=== PATIENT | female | born 1940 | race Caucasian/White ===

== ENCOUNTER 2017-05-30 08:08 | Inpatient (IN) | payer MEDICARE ==
[2017-05-30] MEDS ORDERED: Morphine 4 MG/ML VIAL ONE ×3 (08:27→12:26)
--- NOTE | 2017-05-30 08:33 | C.PDOC ---
Time Seen by Provider: 05/30/17 08:21 Chief Complaint (Nursing): Lower Extremity Problem/Injury Past Medical History Vital Signs: Last Vital Signs Temp 98.4 F 05/30/17 08:12 Pulse 79 05/30/17 08:12 Resp 20 05/30/17 08:12 BP 145/70 05/30/17 08:12 Pulse Ox 96 05/30/17 08:12 - Medical History PMH: Diabetes, HTN, Hypercholesterolemia, Hyperlipidemia Surgical History: Pacemaker (1.5 Month Ago) - [facility] Procedures INITIAL INSERT TRANS LEADS INTO [employer] (08/24/13) INITIAL INSERTION OF DUAL-CHAMBER DEVICE (08/24/13) - Social History Hx Tobacco Use: No Hx Alcohol Use: No Hx Substance Use: No - Immunization History Hx Tetanus Toxoid Vaccination: Yes Hx Influenza Vaccination: Yes (07/2016) Hx Pneumococcal Vaccination: Yes (07/2016) ED Course And Treatment O2 Sat by Pulse Oximetry: 96 Disposition - Disposition Forms: [employer] (Mal[place]ian)
[2017-05-30 08:49] LABS: BASO # 0.1 K/uL (0.0-0.2); BASO % 0.4 % (0.0-2.0); EOS % 0.1 % (0.0-4.0); HEMOGLOBIN 11.3 g/dL (11.0-16.0); LYMPH # 0.6 K/uL (1.0-4.3); LYMPH % 4.5 % (20.0-40.0); MEAN CELL VOLUME 85.5 fL (81.0-99.0); MEAN CORPUSCULAR HEMOGLOBIN 28.2 pg (27.0-31.0); MEAN PLATELET VOLUME 6.9 fL (7.2-11.7); MONO # 0.5 K/uL (0.0-0.8); MONO % 3.4 % (0.0-10.0); NEUT # 12.8 K/uL (1.8-7.0); NEUT % 91.6 % (50.0-75.0); PLATELET COUNT 222 K/uL (130-400); RED CELL DISTRIBUTION WIDTH 14.7 % (11.5-14.5)
[2017-05-30 08:57] LABS: INR 1.3; PROTHROMBIN TIME 14.8 SECONDS (9.7-12.2)
[2017-05-30 08:59] LABS: SQUAMOUS EPITHIAL < 1 /hpf (0-5); URINE BILIRUBIN NEGATIVE (NEGATIVE); URINE BLOOD 2+ (NEGATIVE); URINE CLARITY Clear (Clear); URINE COLOR Yellow (YELLOW); URINE GLUCOSE (UA) NORMAL (Normal); URINE LEUKOCYTE ESTERASE NEG Leu/uL (Negative); URINE NITRATE NEGATIVE (NEGATIVE); URINE PROTEIN NEGATIVE (NEGATIVE); URINE UROBILINOGEN NORMAL mg/dL (0.2-1.0)
[2017-05-30 09:07] LABS: ALBUMIN 4.1 g/dL (3.5-5.0)
[2017-05-30 09:10] LABS: ALB/GLOB RATIO 1.2 (1.0-2.1); ALT/SGPT 27 U/L (9-52); AST/SGOT 28 U/L (14-36); BLOOD UREA NITROGEN 29 mg/dL (7-17); GFR AFRICAN-AMERICAN > 60; GFR NON-AFRICAN AMERICAN 54
[2017-05-30 09:11] LABS: CALCIUM 9.2 mg/dl (8.6-10.4)
[2017-05-30 09:53] LABS: ANISOCYTOSIS SLIGHT; BANDS 2 % (0-2); EOSINOPHIL 1 % (0-4); LYMPHOCYTE 7 % (20-40); MONOCYTE 4 % (0-10); NEUTROPHIL 86 % (50-75); PLATELET ESTIMATE NORMAL (NORMAL); TOTAL CELLS COUNTED 100
--- NOTE | 2017-05-30 10:30 | CT ---
CT right hip History: Hip fracture. Comparison: None available. Technique: Multiple contiguous axial images were performed through the right hip without the use of intravenous contrast. Subsequently, sagittal coronal reformatted images were obtained. This CT exam was performed using one or more of the following dose reduction techniques: Automated exposure control, adjustment of the mA and/or kV according to patient size, and/or use of iterative reconstruction technique. Findings: Right hip: Complete transverse oblique fracture deformity through the right proximal femur extending from the lateral aspect of the femoral head neck junction transversely through the femoral neck to the inferomedial femoral neck. Angulation and superior distraction of the distal fracture fragment. Femoral head appears located. Severe degenerative changes at the superior aspect of the right femoral head with adjacent bony hypertrophy of the bony glenoid. Evaluation of the remainder of the bony pelvis demonstrates some questionable minimal cortical irregularity at the posterior right superior pubic bone on series 300 image 37 which may represent some step-off artifact as it is not as well appreciated on the additional sequences. Prominent osteitis pubis. Sclerosis at the right SI joint. Prominent degenerative changes at the L5-S1 disc space with paravertebral osteophytosis as well as posterior disc osteophyte complexes. Severe fecal retention in the rectum. Impression: 1. Complete transverse oblique fracture deformity through the right proximal femur extending from the lateral aspect of the femoral head neck junction transversely through the femoral neck to the inferomedial femoral neck. Angulation and superior distraction of the distal fracture fragment. 2. Severe degenerative changes at the superior aspect of the right femoral head with adjacent bony hypertrophy of the bony glenoid. 3. Evaluation of the remainder of the bony pelvis demonstrates some questionable minimal cortical irregularity at the posterior right superior pubic bone on series 300 image 37 which may represent some step-off artifact as it is not as well appreciated on the additional sequences. 4. Prominent osteitis pubis. Sclerosis at the right SI joint. 5. Prominent degenerative changes at the L5-S1 disc space with paravertebral osteophytosis as well as posterior disc osteophyte complexes. 6. Severe fecal retention in the rectum.
--- NOTE | 2017-05-30 10:41 | RAD ---
PROCEDURE: CHEST RADIOGRAPH, 1 VIEW HISTORY: fall COMPARISON: 11/02/2013 FINDINGS: LUNGS: Chronic interstitial lung markings. Left-sided pacemaker. PLEURA: No pneumothorax or pleural fluid seen. CARDIOVASCULAR: Normal. OSSEOUS STRUCTURES: Degenerative changes in the spine and shoulders. VISUALIZED UPPER ABDOMEN: Normal. OTHER FINDINGS: None. IMPRESSION: No active disease.
--- NOTE | 2017-05-30 10:53 | C.PDOC ---
History Of Present Illness 76 y/o female presents to the ED via ambulance for evaluation of right hip pain this morning. Patient sustained a fall at home and has been having pain in her right hip since the incident. Additionally, patient was found covered in her own feces. She denies LOC, head injury, extremity numbness/weakness. Time Seen by Provider: 05/30/17 08:21 Chief Complaint (Nursing): Lower Extremity Problem/Injury History Per: Patient, EMS History/Exam Limitations: no limitations Onset/Duration Of Symptoms: Hrs Current Symptoms Are (Timing): Still Present Additional History Per: Patient, EMS - Hip Description Of Injury: Fell Past Medical History Reviewed: Historical Data, Nursing Documentation, Vital Signs Vital Signs: Last Vital Signs Temp 99.4 F 05/30/17 15:26 Pulse 89 05/30/17 15:26 Resp 20 05/30/17 15:26 BP 142/65 05/30/17 15:26 Pulse Ox 100 05/30/17 17:01 - Medical History PMH: Diabetes, HTN, Hypercholesterolemia, Hyperlipidemia Surgical History: Pacemaker (1.5 Month Ago) - [facility] Procedures INITIAL INSERT TRANS LEADS INTO [employer]LE (08/24/13) INITIAL INSERTION OF DUAL-CHAMBER DEVICE (08/24/13) Family History: States: Unknown Family Hx - Social History Hx Tobacco Use: No Hx Alcohol Use: No Hx Substance Use: No - Immunization History Hx Tetanus Toxoid Vaccination: Yes Hx Influenza Vaccination: Yes (07/2016) Hx Pneumococcal Vaccination: Yes (07/2016) Review Of Systems Musculoskeletal: Positive for: Other (+right hip pain ) Neurological: Negative for: Weakness, Numbness, Other (head injury/LOC ) Physical Exam - Physical Exam Appears: Non-toxic, Other (+moderate painful distress, covered in stool ) Skin: Normal Color, Warm, Dry Head: Atraumatic, Normacephalic, No Tenderness, No Swelling Eye(s): bilateral: Normal Inspection, PERRL, EOMI Oral Mucosa: Moist Neck: Supple Chest: Symmetrical, No Deformity, No Tenderness, Other (+pacemaker in place ) Cardiovascular: Rhythm Regular, No Murmur Respiratory: Normal Breath Sounds, No Rales, No Rhonchi, No Wheezing Extremity: Normal ROM, Tenderness (right hip area on palpation ), Capillary Refill (less than 2 seconds ), Other (+externally rotated right lower extremity ) Neurological/Psych: Normal Speech, Normal Cognition Gait: Steady ED Course And Treatment - Laboratory Results Result Diagrams: 05/30/17 08:44 05/30/17 08:44 ECG Rhythm: Sinus Rhythm Interpretation Of ECG: Sinus Rhytm of rate 74bpm. LVH. Diffuse abnormalities noted. Rate From EC O2 Sat by Pulse Oximetry: 100 (on RA) Pulse Ox Interpretation: Normal - Other Rad CXR X-Ray: Interpreted by Me, Viewed By Me, Read By Radiologist Interpretation: Accession No. : [id number]. Patient Name / ID : SRIRAM MUNGUIA / [id number]. Exam Date : 05/30/2017 08:49:02 ( Approved ). Study Comment : Sex / Age : F / 76Y. Creator : Andrei Benson MD. Dictator : Andrei Benson MD. Fabric Coating Supervisor : Phlebotomy Technologist : Andrei Benson MD. Approver2 : Report Date : 05/30/2017 10:40:12. My Comment : . PROCEDURE: CHEST RADIOGRAPH, 1 VIEW. HISTORY: fall. COMPARISON: 11/02/2013. FINDINGS: LUNGS : Chronic interstitial lung markings. Left-sided pacemaker. PLEURA: No pneumothorax or pleural fluid seen. CARDIOVASCULAR: Normal. OSSEOUS STRUCTURES: Degenerative changes in the spine and shoulders. VISUALIZED UPPER ABDOMEN: Normal. OTHER FINDINGS: None. IMPRESSION: No active disease. Hip/Pelvis XR X-Ray: Interpreted by Me, Viewed By Me, Read By Radiologist Interpretation: Accession No. : [id number]. Patient Name / ID : SRIRAM MUNGUIA / [id number]. Exam Date : 05/30/2017 08:49:09 ( Approved ). Study Comment : Sex / Age : F / 76Y. Creator : Andrei eBnson MD. Dictator : Andrei Benson MD. Fabric Coating Supervisor : Phlebotomy Technologist : Andrei Benson MD. Approver2 : Report Date : 05/30/2017 11:18:03. My Comment : . Pelvis and right hip two views. History: Fall. Findings: Foreshortening of the proximal right femur concerning for fracture deformity. Prominent degenerative changes at the right hip joint space. Sclerosis at the bilateral SI joints and pubic symphysis. Moderate degenerative changes at the left hip joint space with subchondral sclerosis. Fecal retention in the rectum. Vascular calcifications and calcified phleboliths in the pelvis. Impression: Foreshortening of the proximal right femur concerning for fracture deformity. Correlation with MRI may be helpful if clinically indicated. - CT Scan/US CT Right lower extremity Other Rad Studies (CT/US): Interpreted By Me, Read By Radiologist, Radiology Report Reviewed CT/US Interpretation: CT right hip. History: Hip fracture. Comparison: None available. Technique: Multiple contiguous axial images were performed through the right hip without the use of intravenous contrast. Subsequently, sagittal coronal reformatted images were obtained. This CT exam was performed using one or more of the following dose reduction techniques: Automated exposure control, adjustment of the mA and/or kV according to patient size, and/or use of iterative reconstruction technique. Findings: Right hip: Complete transverse oblique fracture deformity through the right proximal femur extending from the lateral aspect of the femoral head neck junction transversely through the femoral neck to the inferomedial femoral neck. Angulation and superior distraction of the distal fracture fragment. Femoral head appears located. Severe degenerative changes at the superior aspect of the right femoral head with adjacent bony hypertrophy of the bony glenoid. Evaluation of the remainder of the bony pelvis demonstrates some questionable minimal cortical irregularity at the posterior right superior pubic bone on series 300 image 37 which may represent some step-off artifact as it is not as well appreciated on the additional sequences. Prominent osteitis pubis. Sclerosis at the right SI joint. Prominent degenerative changes at the L5-S1 disc space with paravertebral osteophytosis as well as posterior disc osteophyte complexes. Severe fecal retention in the rectum. Impression: 1. Complete transverse oblique fracture deformity through the right proximal femur extending from the lateral aspect of the femoral head neck junction transversely through the femoral neck to the inferomedial femoral neck. Angulation and superior distraction of the distal fracture fragment. 2. Severe degenerative changes at the superior aspect of the right femoral head with adjacent bony hypertrophy of the bony glenoid. 3. Evaluation of the remainder of the bony pelvis demonstrates some questionable minimal cortical irregularity at the posterior right superior pubic bone on series 300 image 37 which may represent some step- off artifact as it is not as well appreciated on the additional sequences. 4. Prominent osteitis pubis. Sclerosis at the right SI joint. 5. Prominent degenerative changes at the L5-S1 disc space with paravertebral osteophytosis as well as posterior disc osteophyte complexes. 6. Severe fecal retention in the rectum. Progress Note: Labs, Hip XR, EKG, CT lower right extremity ordered and reviewed. Case dicussed with patient's PMD, Dr. Elaina Raymundo, who recommended contacting Dr. Purdy (orthopedist). Case discussed with Dr. Purdy, who recommended patient be cleared for surgery. Disposition - Disposition Disposition: HOSPITALIZED Disposition Time: 10:52 Condition: STABLE - Clinical Impression Clinical Impression: Hip fracture - PA / RIDES SUPERVISOR / Resident Statement MD/DO has reviewed & agrees with the documentation as recorded. - Scribe Statement The provider has reviewed the documentation as recorded by the Scribe (Chasity Paulson) All medical record entries made by the Scribe were at my direction and personally dictated by me. I have reviewed the chart and agree that the record accurately reflects my personal performance of the history, physical exam, medical decision making, and the department course for this patient. I have also personally directed, reviewed, and agree with the discharge instructions and disposition. Decision To Admit - Pt Status Changed To: Hospital Disposition Of: Inpatient - Admit Certification Admit to Inpatient:: After my assessment, the patient will require hospitalization for at least two midnights. This is because of the severity of symptoms shown, intensity of services needed, and/or the medical risk in this patient being treated as an outpatient. - InPatient: Physician Admission Certification: I certify that this patient requires 2 or more midnights of care for the following reason:: pt will need surgery for hip fracture - . Bed Request Type: Regular Admitting Physician: Elaina Raymundo Patient Diagnosis: Hip fracture
--- NOTE | 2017-05-30 11:19 | RAD ---
Pelvis and right hip two views History: Fall. Findings: Foreshortening of the proximal right femur concerning for fracture deformity. Prominent degenerative changes at the right hip joint space. Sclerosis at the bilateral SI joints and pubic symphysis. Moderate degenerative changes at the left hip joint space with subchondral sclerosis. Fecal retention in the rectum. Vascular calcifications and calcified phleboliths in the pelvis. Impression: Foreshortening of the proximal right femur concerning for fracture deformity. Correlation with MRI may be helpful if clinically indicated.
[2017-05-30] MEDS: Sodium Chloride 0.45% 1,000 ML IV SCH (11:57)
--- NOTE | 2017-05-30 20:28 | CON ---
DATE: 05/30/2017 REASON FOR CONSULTATION: Status post mechanical fall with right pain. HISTORY OF PRESENT ILLNESS: This is a 76-year-old female, who presented status post fall late yesterday evening with complaints of right hip pain and inability to ambulate. The patient denies any other injuries. The patient denies any loss of consciousness. The patient was subsequently taken to the emergency room this morning and was diagnosed with a hip fracture. She now presents for further orthopedic evaluation and treatment. PHYSICAL EXAMINATION: GENERAL: She is awake, alert, and oriented x3. EXTREMITIES: Evaluation of her right lower extremity shows that is slightly externally rotated. She has pain with passive range of motion of the hip. Her thigh and calf are otherwise soft and nontender. Neurovascularly, she is intact distally. Evaluation of her left lower extremity shows she is actively flexing her hip and bending her knee without any pain. No crepitus is appreciated. No deformity. Her thing and calf are soft and nontender. Neurovascularly, she is intact. LABORATORY DATA: X-rays and CAT scan of her right hip are consistent with right hip femoral neck fracture. ASSESSMENT: Right hip femoral neck fracture. PLAN: Plan at this point, recommendation for right hip partial versus total arthroplasty once the patient is medically optimize. Risks and benefits were discussed and she want to proceed. We will plan on proceeding with surgery tomorrow. Vic Adame MD
--- NOTE | 2017-05-30 21:46 | CP.PCM.HP ---
History of Present Illness - History of Present Illness History of Present Illness: This is a 76 y/o female diabetic and hypertensive, S/P Permanent pacemaker insertion a few years ago who was brought to the ER because of severe hip pain. She reportedly tripped on her bedroom carpet just before midnight on the night prior to admission. She fell down hitting her R hip on the wooden part of the floor sustaining fracture of R hip. She denies any loss of consiousness, chest pain or shortness of breath. There are no palpitations, dizziness or lightheadedness. She was found by her neighbor on the floor who called the paramedics who brought her to the ER. Present on Admission - Present on Admission Any Indicators Present on Admission: No Review of Systems - Review of Systems All systems: reviewed and no additional remarkable complaints except - Gastrointestinal Gastrointestinal: Nausea, Vomiting Past Patient History - Infectious Disease Hx of Infectious Diseases: None - Past Medical History & Family History Past Medical History?: Yes - Past Social History Smoking Status: Never Smoked Alcohol: None Drugs: Denies Home Situation {Lives}: Alone - CARDIAC Hx Cardiac Disorders: Yes Hx Cardia Arrhythmia: Yes (A Fib) Hx Hypercholesterolemia: Yes Hx Hypertension: Yes Hx Pacemaker: Yes (1.5 years Ago) - PULMONARY Hx Respiratory Disorders: No - NEUROLOGICAL Hx Neurological Disorder: No - HEENT Hx Cataracts: Yes (b/l) - RENAL Hx Chronic Kidney Disease: No Other/Comment: kidney cyst - ENDOCRINE/METABOLIC Hx Diabetes Mellitus Type 2: Yes - HEMATOLOGICAL/ONCOLOGICAL Hx Blood Disorders: No - MUSCULOSKELETAL/RHEUMATOLOGICAL Hx Degenerative Joint Disease: Yes Hx Falls: Yes Hx Fractures: Yes Hx Osteoarthritis: Yes - GASTROINTESTINAL Hx Gastrointestinal Disorders: No - GENITOURINARY/GYNECOLOGICAL Hx Genitourinary Disorders: No - PSYCHIATRIC Hx Psychophysiologic Disorder: No Hx Substance Use: No - SURGICAL HISTORY Other/Comment: PPM - ANESTHESIA Hx Anesthesia: Yes Hx Anesthesia Reactions: No Hx Malignant Hyperthermia: No Has any member of the family had a problem w/ anesthesia?: No Meds Allergies/Adverse Reactions: Allergies Allergy/AdvReac Type Severity Reaction Status Date / Time No Known Allergies Allergy Verified 05/30/17 08:16 Physical Exam - Constitutional Appears: No Acute Distress - Head Exam Head Exam: NORMAL INSPECTION - Eye Exam Eye Exam: Normal appearance - Neck Exam Neck exam: Positive for: Normal Inspection - Respiratory Exam Respiratory Exam: Clear to Auscultation Bilateral, NORMAL BREATHING PATTERN - Cardiovascular Exam Cardiovascular Exam: REGULAR RHYTHM, +S1, +S2 - GI/Abdominal Exam GI & Abdominal Exam: Normal Bowel Sounds, Soft - Extremities Exam Extremities exam: Positive for: pedal pulses present Additional comments: no edema, R leg slightly externally rotated, markedly tender ont he r hip area on slight pressure, pedal pulses felt, no calf tenderness - Neurological Exam Neurological exam: Alert, Oriented x3 - Psychiatric Exam Psychiatric exam: Normal Affect, Normal Mood - Skin Skin Exam: Dry, Intact, Normal Color, Warm Results - Vital Signs Recent Vital Signs: Last Vital Signs Temp 99.4 F 05/30/17 15:26 Pulse 89 05/30/17 15:26 Resp 20 05/30/17 15:26 BP 142/65 05/30/17 15:26 Pulse Ox 100 05/30/17 18:59 - Labs Result Diagrams: 05/31/17 07:20 05/31/17 07:20 Labs: Laboratory Results - last 24 hr 05/30/17 16:21 POC Glucose (mg/dL) 188 H Assessment & Plan - Assessment and Plan (Free Text) Assessment: 1. R Hip Fracture- Orthopedic consultation requested and obtained. Consult note appreciated. For surgery tomorrow PM. Patient optimized for the procedure 2. History of atrial fib- SSS- S/P Permanent Pacemaker- EKG reviewed- paced rhythm. Good sensing and capture- Patient has been on Pradaxa. Monitoring PT/ PTT. May need Praxbind before surgery. 3. Mild dehydration- elevated BUN- started on IVF infusion. Will monitor electrolytes 4. Hypertension- controlled- Medicine resumed 5. Diabetes Mellitus- on accucheck and meds resumed. Decision To Admit - Pt Status Changed To: Hospital Disposition Of: Inpatient - Admit Certification Admit to Inpatient:: After my assessment, the patient will require hospitalization for at least two midnights. This is because of the severity of symptoms shown, intensity of services needed, and/or the medical risk in this patient being treated as an outpatient. - InPatient: Physician Admission Certification:: After my assessment, the patient will require hospitalization for at least two midnights. This is because of the severity of symptoms shown, intensity of services needed, and/or the medical risk in this patient being treated as an outpatient. - . Bed Request Type: Regular Admitting Physician: Elaina Raymundo
[2017-05-31] MEDS: Sodium Chloride 0.45% 1,000 ML IV SCH ×2 (06:36)
[2017-05-31 07:40] LABS: HEMOGLOBIN 10.1 g/dL (11.0-16.0); MEAN CELL VOLUME 84.6 fL (81.0-99.0); MEAN CORPUSCULAR HEMOGLOBIN 28.6 pg (27.0-31.0); MEAN CORPUSCULAR HGB CONC 33.8 g/dL (33.0-37.0); MEAN PLATELET VOLUME 7.1 fL (7.2-11.7); RBC 3.54 Mil/uL (3.80-5.20); RED CELL DISTRIBUTION WIDTH 14.6 % (11.5-14.5); WHITE BLOOD COUNT 10.1 K/uL (4.8-10.8)
[2017-05-31 07:49] LABS: INR 1.4; PROTHROMBIN TIME 15.9 SECONDS (9.7-12.2)
[2017-05-31 08:03] LABS: ALBUMIN 3.2 g/dL (3.5-5.0)
[2017-05-31 08:06] LABS: CALCIUM 8.4 mg/dl (8.6-10.4)
--- NOTE | 2017-05-31 14:16 | CARD ---
APPROVED REPORT EKG Measurement Heart [id number] <Conclusion> ventricular paced rhythm Left axis deviation. Abnormal ECG
[2017-05-31 14:49] LABS: INR 1.3; PROTHROMBIN TIME 14.6 SECONDS (9.7-12.2)
--- NOTE | 2017-05-31 15:00 | CP.PCM.PN ---
Subjective - Date & Time of Evaluation Date of Evaluation: 05/31/17 - Subjective Subjective: Chart reviewed. Lab tests noted. EKG stable, no acute changes. Patient optimized for the procedure scheduled today. 17:55- Patient currently in the OR now. Received Praxbind as per staff just before she was taken down. Objective - Vital Signs/Intake and Output Vital Signs (last 24 hours): Temp Pulse Resp BP Pulse Ox 99.2 F 77 20 142/54 L 99 05/31/17 08:33 05/31/17 08:33 05/31/17 08:33 05/31/17 08:33 05/31/17 08:33 Intake and Output: 05/31/17 05/31/17 06:59 18:59 Intake Total 1930 Output Total 1999 Balance -70 - Medications Medications: Current Medications Enalapril Maleate (Vasotec) 5 mg PO DAILY [facility] Last Admin: 05/31/17 10:19 Dose: Not Given Glimepiride (Amaryl) 2 mg PO BID [facility] Last Admin: 05/31/17 10:19 Dose: Not Given Sodium Chloride (Sodium Chloride 0.45%) 1,000 mls @ 80 mls/hr IV .[id number] [facility] Last Admin: 05/31/17 06:36 Dose: 80 mls/hr Ketorolac Tromethamine (Toradol) 30 mg IVP Q6 PRN PRN Reason: Pain, severe (8-10) Metformin HCl (Glucophage) 500 mg PO BID [facility] Last Admin: 05/31/17 10:19 Dose: Not Given Rosuvastatin Calcium (Crestor) 10 mg PO HS [facility] Last Admin: 05/30/17 22:15 Dose: 10 mg - Labs Labs: 05/31/17 07:20 05/31/17 07:20 PT 14.6 SECONDS (9.7-12.2) H 05/31/17 14:34 INR 1.3 05/31/17 14:34 APTT 33 SECONDS (21-34) 05/31/17 14:34 Assessment and Plan - Assessment and Plan (Free Text) Assessment: 1. R Hip Fracture- Patient currently in the OR 2. History of atrial fib- SSS- S/P Permanent Pacemaker- EKG reviewed- paced rhythm. Good sensing and capture-PT/PTT noted. Praxbind given before surgery 3. Mild dehydration- elevated BUN- started on IVF infusion. BUN much better. Continue current infusion. 4. Hypertension- controlled- Continue current meds 5. Diabetes Mellitus- on accucheck. Check HgbA1c. Continue current antidiabetic med.
[2017-05-31] MEDS ORDERED: Bacitracin 150,000 UNIT in Sodium Chloride 0.9% Irrig 3,000 ML IR SCH (16:50)
[2017-05-31] MEDS ORDERED: Bupivacaine Liposomal Inj 20 ml INFIL ONE (16:53)
[2017-05-31] MEDS ORDERED: Propofol 10 mg/ml Inj (20 ML) ONE (17:06)
[2017-05-31] MEDS ORDERED: Midazolam 2 MG/2 ML VIAL ONE (17:06)
[2017-05-31] MEDS ORDERED: Rocuronium 10 mg/ml (10 ml) ONE ×2 (17:09→17:40)
[2017-05-31] MEDS ORDERED: Etomidate 20 mg/10ml Inj IV ONE (17:18)
[2017-05-31] MEDS ORDERED: Lactated Ringer's 1,000 ML IV ONE ×2 (17:20)
[2017-05-31] MEDS ORDERED: ceFAZolin IV 1 gm in Dextrose 2 GM/100 ML BAG IVPB ONE (18:34)
[2017-05-31] MEDS ORDERED: Sodium Chloride 0.9% 40 ML IV ONE (19:57)
[2017-05-31] MEDS ORDERED: Morphine 4 MG/ML VIAL ONE (20:11)
[2017-05-31] MEDS ORDERED: Neostigmine Methylsulfate 3mg/3ml Syringe IV ONE (20:39)
--- NOTE | 2017-05-31 20:47 | PCM.SURG1 ---
Surgeon's Initial Post Op Note - Surgeon's Notes Surgeon: Juan C Adame MD Precipitator: Olivia Ricci PA-C Type of Anesthesia: General Endo Anesthesia Administered By: Dr. Cantu Pre-Operative Diagnosis: Right hip femoral neck fracture Operative Findings: Biomet implant Post-Operative Diagnosis: same Operation Performed: Right total hip replacement Specimen/Specimens Removed: femoral head Estimated Blood Loss: EBL {In ML}: 200 Blood Products Given: N/A Drains Used: No Drains Post-Op Condition: Fair Date of Surgery/Procedure: 05/31/17 Time of Surgery/Procedure: 20:48
--- NOTE | 2017-05-31 20:51 | CP.PCM.PN ---
Subjective - Date & Time of Evaluation Date of Evaluation: 05/31/17 Time of Evaluation: 16:00 - Subjective Subjective: Patient states pain is controlled. Family at bedside. Risks/benefits/alt of THR vs hemiarthroplasty explained to patient and family, consents obtained. Medical optimization Dr. Holbrook noted. Objective - Vital Signs/Intake and Output Vital Signs (last 24 hours): Temp Pulse Resp BP Pulse Ox 99.5 F 78 20 155/67 H 98 05/31/17 16:06 05/31/17 16:06 05/31/17 16:06 05/31/17 16:06 05/31/17 16:06 Intake and Output: 05/31/17 06/01/17 18:59 06:59 Output Total 200 Balance -200 - Medications Medications: Current Medications Acetaminophen (Tylenol 325mg Tab) 650 mg PO Q4 PRN PRN Reason: Fever 101 degrees fahrenheit Docusate Sodium (Colace) 100 mg PO BID [facility] Enalapril Maleate (Vasotec) 5 mg PO DAILY [facility] Last Admin: 05/31/17 10:19 Dose: Not Given Enoxaparin Sodium (Lovenox) 40 mg SC Q24H [facility] Glimepiride (Amaryl) 2 mg PO BID [facility] Last Admin: 05/31/17 18:37 Dose: Not Given Sodium Chloride (Sodium Chloride 0.45%) 1,000 mls @ 80 mls/hr IV .[id number] [facility] Last Admin: 05/31/17 06:36 Dose: 80 mls/hr Cefazolin Sodium/Dextrose (Ancef Iv 2 Gm Duplex) 50 mls @ 100 mls/hr IVPB Q8H [facility] Stop: 06/01/17 10:29 Ketorolac Tromethamine (Toradol) 30 mg IVP Q6 PRN PRN Reason: Pain, severe (8-10) Metformin HCl (Glucophage) 500 mg PO BID [facility] Last Admin: 05/31/17 18:37 Dose: Not Given Rosuvastatin Calcium (Crestor) 10 mg PO HS [facility] Last Admin: 05/30/17 22:15 Dose: 10 mg - Labs Labs: 05/31/17 07:20 05/31/17 07:20 PT 14.6 SECONDS (9.7-12.2) H 05/31/17 14:34 INR 1.3 05/31/17 14:34 APTT 33 SECONDS (21-34) 05/31/17 14:34 - Extremities Exam Additional comments: RLE: +DF/PF pulses, sensation intact +DP pulse calves soft NT neg homans Assessment and Plan (1) Closed displaced fracture of right femoral neck Assessment & Plan: pt on pradaxa, since PT/INR still mildly elevated and < 48 hrs from last dose, and significant potential EBL, praxbind given as per Dr. Adame plan THR vs hemiarthroplasty, appears radiographically patient with some significant DJD of right hip, patient active as well NPO T&C for OR Status: Acute
[2017-06-01] MEDS: Sodium Chloride 0.45% 1,000 ML IV SCH (01:13)
--- NOTE | 2017-06-01 07:26 | OP ---
PROCEDURE DATE: 05/31/2017 PREOPERATIVE DIAGNOSIS: Right hip femoral neck fracture. POSTOPERATIVE DIAGNOSIS: Right hip femoral neck fracture. PROCEDURE: Right total hip arthroplasty. SURGEON: Vic Adame MD and Dr. Adame was assisted by Samm Ricci, a physician scheduling assistant, and Ms. Ricci was scrubbed and present throughout the case and helped with preoperative patient positioning, retraction throughout the case, as well as wound closure. TYPE OF ANESTHESIA: General. COMPLICATIONS: None. ESTIMATED BLOOD LOSS: 75 mL. IMPLANT: Biomet total hip system. INDICATIONS FOR PROCEDURE: This is a 76-year-old female who presented with status post fall with right hip pain and inability to ambulate. Clinical and radiographic examination was consistent with comminuted femoral neck fracture. Recommendations were for right total hip arthroplasty once the patient is medically optimize. The risks, benefits, and alternatives of the procedure were discussed with the patient and informed consent was obtained. OPERATIVE PROCEDURE: After the surgical site was finally verified in the preoperative holding area, the patient was taken to the operating room and placed in supine on the operating table. After administration of general anesthesia, the patient received 2 g of Ancef IV. The patient was positioned in the lateral decubitus position with the right hip up towards the ceiling. Care was taken to make sure all bony prominences and areas were well padded and protected. Axillary roll was placed under the back of the axilla and the right lower extremity was prepped and draped in the usual sterile fashion. Approximately, 12 cm curvilinear incision was made and the soft tissue was dissected sharply down to the fascia. The fascia was incised and Charnley retractor was placed. Short external rotators were identified, tagged and resected proximal femur. T-type capsulotomy was performed and the hip was dislocated. Corkscrew was used to remove the femoral head and at this point, our attention was directed towards the acetabulum. The acetabular noted to have some degenerative changes particularly anteriorly and some osteophytes were noted inferiorly. At this point, acetabulum was reamed sequentially to allow for 54 mm press-fit cup. Care was taken to maintain proper acetabular height and version. Satisfied with the trial components inserted and at this point the trial was removed and the hip was pulse lavaged with antibiotic saline solution. The actual cup was then impacted into place again making sure to maintain proper height and version. Next, the cup was further fixed using 2 screws in the posterior superior quadrant. The actual band was then impacted into place and our attention directed to the femur. The fracture was noted to extend to just above the lesser trochanter and a revision femoral neck cut was performed and the medullary canal of the proximal femur was reamed and broached sequentially to allow for 13 mm press-fit low profile stem. Again, care was taken to maintain proper version. With the trial stem in place, the trial neck and head were placed and the hip was reduced to take it through a range of motion, was noted to be stable with approximately equal limb length. The hip was again dislocated and the trial component was removed. The hip was pulse lavaged and actual stem was impacted into place. A cerclage wire was placed right at the base of the femoral neck to prevent any propagation of the fracture. This was tensioned appropriately. At this point, the actual head was then impacted and the hip was reduced. Again was noted to be stable with approximately equal limb lengths. The hip was pulse lavaged and capsule repaired to bone using #1 Vicryl suture. The external rotators were repaired using #1 Vicryl sutures. The deep fascia was closed using interrupted #1 Vicryl suture and the subcutaneous tissues were closed using 0 Vicryl and 2-0 Vicryl suture and the skin was closed using bruce. A sterile dressing was applied and abduction pillow was placed. The patient was transferred supine, awakened and taken to the recovery room in stable condition. Vic Adame MD
[2017-06-01 08:09] LABS: BASO % 0.2 % (0.0-2.0); EOS % 0.6 % (0.0-4.0); HEMOGLOBIN 8.2 g/dL (11.0-16.0); LYMPH % 12.7 % (20.0-40.0); MEAN CELL VOLUME 84.6 fL (81.0-99.0); MEAN CORPUSCULAR HEMOGLOBIN 28.3 pg (27.0-31.0); MEAN CORPUSCULAR HGB CONC 33.4 g/dL (33.0-37.0); MEAN PLATELET VOLUME 7.1 fL (7.2-11.7); MONO # 0.6 K/uL (0.0-0.8); MONO % 7.2 % (0.0-10.0); NEUT # 6.1 K/uL (1.8-7.0); NEUT % 79.3 % (50.0-75.0); RBC 2.89 Mil/uL (3.80-5.20); WHITE BLOOD COUNT 7.6 K/uL (4.8-10.8)
[2017-06-01 08:32] LABS: ALBUMIN 2.5 g/dL (3.5-5.0)
[2017-06-01 08:35] LABS: ALB/GLOB RATIO 0.9 (1.0-2.1)
[2017-06-01 08:36] LABS: CALCIUM 7.7 mg/dl (8.6-10.4)
--- NOTE | 2017-06-01 08:48 | CP.PCM.PN ---
Subjective - Date & Time of Evaluation Date of Evaluation: 06/01/17 Time of Evaluation: 08:45 - Subjective Subjective: Patient states she didn't sleep well last night due to noise and light. Pain is controlled. Little appetite this am. Denies CP/SOb/dizziness/palp/n/v/numbness/ tingling. Objective - Vital Signs/Intake and Output Vital Signs (last 24 hours): Temp Pulse Resp BP Pulse Ox 98.5 F 80 20 99/53 L 99 06/01/17 04:00 06/01/17 07:30 06/01/17 04:00 06/01/17 04:00 06/01/17 04:00 Intake and Output: 06/01/17 06/01/17 06:59 18:59 Intake Total 830 Output Total 550 Balance 280 - Medications Medications: Current Medications Acetaminophen (Tylenol 325mg Tab) 650 mg PO Q4 PRN PRN Reason: Fever 101 degrees fahrenheit Docusate Sodium (Colace) 100 mg PO BID [facility] Enalapril Maleate (Vasotec) 5 mg PO DAILY [facility] Last Admin: 05/31/17 10:19 Dose: Not Given Enoxaparin Sodium (Lovenox) 40 mg SC Q24H [facility] Glimepiride (Amaryl) 2 mg PO BID [facility] Last Admin: 05/31/17 18:37 Dose: Not Given Sodium Chloride (Sodium Chloride 0.45%) 1,000 mls @ 80 mls/hr IV .[id number] [facility] Last Admin: 06/01/17 01:13 Dose: 80 mls/hr Cefazolin Sodium 2 gm/ (Dextrose) 50 mls @ 100 mls/hr IVPB Q8H [facility] Stop: 06/01/17 10:29 Last Admin: 06/01/17 01:12 Dose: 100 mls/hr Ketorolac Tromethamine (Toradol) 30 mg IVP Q6 PRN PRN Reason: Pain, severe (8-10) Last Admin: 06/01/17 03:30 Dose: 30 mg Metformin HCl (Glucophage) 500 mg PO BID [facility] Last Admin: 05/31/17 18:37 Dose: Not Given Rosuvastatin Calcium (Crestor) 10 mg PO HS [facility] Last Admin: 05/31/17 23:10 Dose: Not Given - Labs Labs: 06/01/17 07:58 08/08/17 07:58 PT 14.6 SECONDS (9.7-12.2) H 05/31/17 14:34 INR 1.3 05/31/17 14:34 APTT 33 SECONDS (21-34) 05/31/17 14:34 - Extremities Exam Additional comments: +ROM ankle/toes, sensation intact +DP/PT pulses, +DF/PF ankle, hip abduction brace intact, +venodynes, dressing intact, no visible drainage, thigh soft + swelling Assessment and Plan (1) Closed displaced fracture of right femoral neck Assessment & Plan: POD# s/p R THR -PT/OT -VTE proph, lovenox ordered, consider restart pradaxa, defer to Dr. Holbrook -d/c planning -OOB -hip precautions -d/w Dr. Adame, agrees with above Status: Acute (2) Acute blood loss anemia Assessment & Plan: fracture and post op losses, BP 90/50 this am, expected to drop again, will transfuse this am Status: Acute
--- NOTE | 2017-06-01 08:54 | RAD ---
PROCEDURE: HISTORY: pt in pacu, s/p THR COMPARISON: CT extremity lower without contrast 05/30/2017 and hip pelvis x-ray 05/30/2017 TECHNIQUE: Three views FINDINGS: A total right hip prosthesis is intervally placed. To diagonal screws in the right acetabulum/ ischium are present. An intact proximal cerclage wire adds to the femoral prosthetic component securement. Femoral stem is well centered medullary cavity. No cement here is noted The acetabular components appear well seated and anatomical as well. Lucencies in the lateral hip soft tissues and overlying skin bruce are consistent with recent surgical intervention Prominent right L5-S1 marginal osteophytosis IMPRESSION: Status post recent total right hip arthroplasty/replacement per recent right proximal femoral fracture
[2017-06-01] MEDS ORDERED: DiphenhydrAMINE 12.5 mg/5 ml LIQ UD (5 ml) PO PRN (12:29)
--- NOTE | 2017-06-01 12:36 | CP.PCM.PN ---
Subjective - Date & Time of Evaluation Date of Evaluation: 06/01/17 Time of Evaluation: 12:15 - Subjective Subjective: -Patient alert, oriented, cooperative. Complains of lack of sleep. Appetite good. -Had THR R yesterday and tolerated the surgery well. -Looks pale but claims to feel fine. Was out of bed this morning and walked with walker assisted by physical therapist. -Labs noted H/H drop noted. Blood transfusion ordered. Patient agreeable after some persuasion and explanation. -Will also restart on Pradaxa. Objective - Vital Signs/Intake and Output Vital Signs (last 24 hours): Temp Pulse Resp BP Pulse Ox 98.8 F 68 20 136/71 100 06/01/17 08:56 06/01/17 08:56 06/01/17 08:56 06/01/17 09:00 06/01/17 08:56 Intake and Output: 06/01/17 06/01/17 06:59 18:59 Intake Total 830 Output Total 550 Balance 280 - Medications Medications: Current Medications Acetaminophen (Tylenol 325mg Tab) 650 mg PO Q4 PRN PRN Reason: Fever 101 degrees fahrenheit Acetaminophen (Tylenol 325mg Tab) 650 mg PO ONCE PRN PRN Reason: Other Dabigatran (Pradaxa) 150 mg PO BID [facility] Diphenhydramine HCl (Benadryl) 25 mg PO ONCE PRN PRN Reason: Other Docusate Sodium (Colace) 100 mg PO BID [facility] Last Admin: 06/01/17 10:52 Dose: 100 mg Enalapril Maleate (Vasotec) 5 mg PO DAILY [facility] Last Admin: 06/01/17 09:00 Dose: 5 mg Enoxaparin Sodium (Lovenox) 40 mg SC Q24H [facility] Glimepiride (Amaryl) 2 mg PO BID [facility] Last Admin: 06/01/17 09:00 Dose: 2 mg Ketorolac Tromethamine (Toradol) 30 mg IVP Q6 PRN PRN Reason: Pain, severe (8-10) Last Admin: 06/01/17 10:49 Dose: 30 mg Metformin HCl (Glucophage) 500 mg PO BID [facility] Last Admin: 06/01/17 10:00 Dose: 500 mg Rosuvastatin Calcium (Crestor) 10 mg PO HS [facility] Last Admin: 05/31/17 23:10 Dose: Not Given - Labs Labs: 06/01/17 07:58 06/01/17 07:58 PT 14.6 SECONDS (9.7-12.2) H 05/31/17 14:34 INR 1.3 05/31/17 14:34 APTT 33 SECONDS (21-34) 05/31/17 14:34 - Constitutional Appears: No Acute Distress - Head Exam Head Exam: NORMAL INSPECTION - Eye Exam Eye Exam: Normal appearance - ENT Exam ENT Exam: Normal Exam - Neck Exam Neck Exam: Normal Inspection - Respiratory Exam Respiratory Exam: Clear to Ausculation Bilateral, NORMAL BREATHING PATTERN - Cardiovascular Exam Cardiovascular Exam: REGULAR RHYTHM, +S1, +S2 - GI/Abdominal Exam GI & Abdominal Exam: Soft, Normal Bowel Sounds - Extremities Exam Additional comments: s/p THR. with abduction pillow in place, no calf tenderness, pedal pulses felt bilat - Neurological Exam Neurological Exam: Alert, Oriented x3 - Psychiatric Exam Psychiatric exam: Normal Affect, Normal Mood - Skin Skin Exam: Dry, Intact, Pallor, Warm Assessment and Plan - Assessment and Plan (Free Text) Assessment: 1. R Hip Fracture- s/p THR/ doing well. Started on PT/OT 2. Anemia most likely from acute blood loss- blood transfusion ordered 2. History of atrial fib- SSS- S/P Permanent Pacemaker- Telemetry shows 100% atrial sensed ventricular paced rhythm at 75bpm 3. Mild dehydration- BUN continues to improve. 4. hyponatremia- Na 131 today- gradually anya gdown from admission with fluid infusion. Will d/c IVF. Patient eating and drinking well. 5. Hypertension- controlled- Continue current meds 6. Diabetes Mellitus- on accucheck. HgbA1c- 6.8- controlled on current med.
[2017-06-01] MEDS ORDERED: Enoxaparin 40 mg Syringe SC SCH (19:00)
[2017-06-02 08:04] LABS: MEAN CELL VOLUME 85.1 fL (81.0-99.0); MEAN CORPUSCULAR HEMOGLOBIN 29.3 pg (27.0-31.0); MEAN CORPUSCULAR HGB CONC 34.4 g/dL (33.0-37.0); MEAN PLATELET VOLUME 7.3 fL (7.2-11.7); RBC 3.41 Mil/uL (3.80-5.20); WHITE BLOOD COUNT 8.4 K/uL (4.8-10.8)
[2017-06-02 08:34] LABS: CALCIUM 7.6 mg/dl (8.6-10.4)
--- NOTE | 2017-06-02 08:56 | CP.PCM.PN ---
Subjective - Date & Time of Evaluation Date of Evaluation: 06/02/17 Time of Evaluation: 08:47 - Subjective Subjective: Patient states she slept better last night. She says pain is hip is controlled. Still c/o decreased appetite. Denies CP?SOB/dizziness. Patient initially refused transfusion, but agreed after discussing with Dr. Holbrook yesterday. Objective - Vital Signs/Intake and Output Vital Signs (last 24 hours): Temp Pulse Resp BP Pulse Ox 98.3 F 74 20 157/73 H 100 06/01/17 23:51 06/02/17 01:48 06/01/17 23:51 06/01/17 23:51 06/01/17 15:45 Intake and Output: 06/02/17 06/02/17 06:59 18:59 Intake Total 770 Balance 770 - Medications Medications: Current Medications Acetaminophen (Tylenol 325mg Tab) 650 mg PO Q4 PRN PRN Reason: Fever 101 degrees fahrenheit Acetaminophen (Tylenol 325mg Tab) 650 mg PO ONCE PRN PRN Reason: Other Dabigatran (Pradaxa) 150 mg PO BID [facility] Last Admin: 06/01/17 17:22 Dose: 150 mg Diphenhydramine HCl (Benadryl) 25 mg PO ONCE PRN PRN Reason: 1 HR PRIOR TO BLOOD TRANSFUSIO Last Admin: 06/01/17 15:58 Dose: 25 mg Docusate Sodium (Colace) 100 mg PO BID [facility] Last Admin: 06/01/17 17:22 Dose: 100 mg Enalapril Maleate (Vasotec) 5 mg PO DAILY [facility] Last Admin: 06/01/17 09:00 Dose: 5 mg Enoxaparin Sodium (Lovenox) 40 mg SC Q24H [facility] Last Admin: 06/01/17 18:25 Dose: 40 mg Glimepiride (Amaryl) 2 mg PO BID [facility] Last Admin: 06/01/17 17:22 Dose: 2 mg Ketorolac Tromethamine (Toradol) 30 mg IVP Q6 PRN PRN Reason: Pain, severe (8-10) Last Admin: 06/01/17 10:49 Dose: 30 mg Metformin HCl (Glucophage) 500 mg PO BID [facility] Last Admin: 06/01/17 17:22 Dose: 500 mg Rosuvastatin Calcium (Crestor) 10 mg PO HS [facility] Last Admin: 06/01/17 21:10 Dose: 10 mg - Labs Labs: 06/02/17 07:54 06/02/17 07:54 PT 14.6 SECONDS (9.7-12.2) H 05/31/17 14:34 INR 1.3 05/31/17 14:34 APTT 33 SECONDS (21-34) 05/31/17 14:34 - Constitutional Appears: Well, No Acute Distress - Extremities Exam Additional comments: Right hip: dressing changed. Incision intact, dry, no erythema. Thigh swollen, but soft. +ROM ankle/toes, sensation intact, calves soft NT neg homans Assessment and Plan (1) Closed displaced fracture of right femoral neck Assessment & Plan: POD# 2 s/p right total hip replacement -PT/OT -hip precautions -OOB today -orthopedically stable for transfer to rehab -f/u Dr. Adame approx 10 days, call for appointment [phone] -dressing change right hip daily -continue hip abduction pillow in bed -ok from ortho perspective to d/c lovenox and restart pradaxa as per Dr. Holbrook -d/w DR. Adame, agrees with above Status: Acute (2) Acute blood loss anemia Assessment & Plan: s/p 2uPRBC stable hgb 10.0 Status: Acute
--- NOTE | 2017-06-02 17:22 | CP.PCM.PN ---
Subjective - Date & Time of Evaluation Date of Evaluation: 06/02/17 Time of Evaluation: 17:20 - Subjective Subjective: -Patient looking well, no complaints. Sat on the chair for 2 hours and tolerated well. -Received blood transfusion without any problem. H/h improved -Not eating well because she admits she does not like the food. -Advised to drink fluids as BUN noted to be slightly higher today. -Prepare discharge to acute rehab facility Objective - Vital Signs/Intake and Output Vital Signs (last 24 hours): Temp Pulse Resp BP Pulse Ox 99.0 F 76 20 153/64 H 99 06/02/17 07:15 06/02/17 08:00 06/02/17 07:15 06/02/17 09:21 06/02/17 07:15 Intake and Output: 06/02/17 06/02/17 06:59 18:59 Intake Total 770 Balance 770 - Medications Medications: Current Medications Acetaminophen (Tylenol 325mg Tab) 650 mg PO Q4 PRN PRN Reason: Fever 101 degrees fahrenheit Acetaminophen (Tylenol 325mg Tab) 650 mg PO ONCE PRN PRN Reason: Other Dabigatran (Pradaxa) 150 mg PO BID [facility] Last Admin: 06/02/17 10:29 Dose: 150 mg Diphenhydramine HCl (Benadryl) 25 mg PO ONCE PRN PRN Reason: 1 HR PRIOR TO BLOOD TRANSFUSIO Last Admin: 06/01/17 15:58 Dose: 25 mg Docusate Sodium (Colace) 100 mg PO BID [facility] Last Admin: 06/02/17 09:18 Dose: 100 mg Enalapril Maleate (Vasotec) 5 mg PO DAILY [facility] Last Admin: 06/02/17 09:21 Dose: 5 mg Glimepiride (Amaryl) 2 mg PO BID [facility] Last Admin: 06/02/17 09:17 Dose: 2 mg Ketorolac Tromethamine (Toradol) 30 mg IVP Q6 PRN PRN Reason: Pain, severe (8-10) Last Admin: 06/01/17 10:49 Dose: 30 mg Metformin HCl (Glucophage) 500 mg PO BID [facility] Last Admin: 06/02/17 09:17 Dose: 500 mg Rosuvastatin Calcium (Crestor) 10 mg PO HS [facility] Last Admin: 06/01/17 21:10 Dose: 10 mg - Labs Labs: 06/02/17 07:54 06/02/17 07:54 PT 14.6 SECONDS (9.7-12.2) H 05/31/17 14:34 INR 1.3 05/31/17 14:34 APTT 33 SECONDS (21-34) 05/31/17 14:34 - Constitutional Appears: No Acute Distress - Head Exam Head Exam: NORMOCEPHALIC - Eye Exam Eye Exam: Normal appearance - ENT Exam ENT Exam: Normal Exam - Neck Exam Neck Exam: Normal Inspection - Respiratory Exam Respiratory Exam: Clear to Ausculation Bilateral, NORMAL BREATHING PATTERN - Cardiovascular Exam Cardiovascular Exam: REGULAR RHYTHM, +S1, +S2 - GI/Abdominal Exam GI & Abdominal Exam: Soft, Normal Bowel Sounds - Extremities Exam Additional comments: S/P THR, R, no calf tenderness, no edema, pedal pulses felt well bilaterally - Neurological Exam Neurological Exam: Alert, Awake, Oriented x3 - Psychiatric Exam Psychiatric exam: Normal Affect, Normal Mood - Skin Skin Exam: Dry, Intact, Normal Color, Warm Assessment and Plan - Assessment and Plan (Free Text) Assessment: 1. R Hip Fracture- s/p THR. PT/OT started. recommended Acute Rehab 2. Anemia- much improved after blood transfusion- most likely from blood loss 3. History of atrial fib- SSS- S/P Permanent Pacemaker- condition stable. D/c telemetry 4. Mild dehydration- Advised to push fluids po 5. hyponatremia- no change 6. Hypertension- controlled- Continue current meds 7. Diabetes Mellitus- on accucheck. HgbA1c- 6.8- controlled on current med.
--- NOTE | 2017-06-03 07:29 | CP.PCM.PN ---
Subjective - Date & Time of Evaluation Date of Evaluation: 06/03/17 Time of Evaluation: 07:27 - Subjective Subjective: Patient states she is feeling much better today. Denies CP/SOB/dizziness/n/v/ numbness/tingling. Able to move herself around in the bed. Objective - Vital Signs/Intake and Output Vital Signs (last 24 hours): Temp Pulse Resp BP Pulse Ox 97.8 F 70 20 133/60 99 06/02/17 23:40 06/02/17 23:40 06/02/17 23:40 06/02/17 23:40 06/02/17 23:40 - Medications Medications: Current Medications Acetaminophen (Tylenol 325mg Tab) 650 mg PO Q4 PRN PRN Reason: Fever 101 degrees fahrenheit Last Admin: 06/02/17 21:51 Dose: 650 mg Acetaminophen (Tylenol 325mg Tab) 650 mg PO ONCE PRN PRN Reason: Other Dabigatran (Pradaxa) 150 mg PO BID [facility] Last Admin: 06/02/17 18:29 Dose: 150 mg Diphenhydramine HCl (Benadryl) 25 mg PO ONCE PRN PRN Reason: 1 HR PRIOR TO BLOOD TRANSFUSIO Last Admin: 06/01/17 15:58 Dose: 25 mg Docusate Sodium (Colace) 100 mg PO BID [facility] Last Admin: 06/02/17 18:28 Dose: 100 mg Enalapril Maleate (Vasotec) 5 mg PO DAILY [facility] Last Admin: 06/02/17 09:21 Dose: 5 mg Glimepiride (Amaryl) 2 mg PO BID [facility] Last Admin: 06/02/17 18:28 Dose: 2 mg Metformin HCl (Glucophage) 500 mg PO BID [facility] Last Admin: 06/02/17 18:28 Dose: 500 mg Rosuvastatin Calcium (Crestor) 10 mg PO HS [facility] Last Admin: 06/02/17 21:50 Dose: 10 mg - Labs Labs: 06/02/17 07:54 06/02/17 07:54 PT 14.6 SECONDS (9.7-12.2) H 05/31/17 14:34 INR 1.3 05/31/17 14:34 APTT 33 SECONDS (21-34) 05/31/17 14:34 - Extremities Exam Additional comments: +ROM ankle/toes, sensation intact, NVID, calves soft NT neg homans, +DP pulse, hip abd pillow and venodynes intact Assessment and Plan (1) Closed displaced fracture of right femoral neck Assessment & Plan: POD# 3 s/p right THR for femoral neck fx -PT/OT -IS encouraged -OOB -ortho stable for d/c to rehab -dressing change right hip daily -hip abduction pillow in bed -WBAT RLE -f/u Dr. Adame approx 10 days call for appointment [phone] -d/w Dr. Adame, agrees with above Status: Acute (2) Acute blood loss anemia Assessment & Plan: f/u labs Status: Acute
[2017-06-03 09:06] LABS: MEAN CELL VOLUME 85.5 fL (81.0-99.0); MEAN CORPUSCULAR HEMOGLOBIN 28.8 pg (27.0-31.0); MEAN CORPUSCULAR HGB CONC 33.7 g/dL (33.0-37.0); MEAN PLATELET VOLUME 7.2 fL (7.2-11.7); RBC 3.46 Mil/uL (3.80-5.20); RED CELL DISTRIBUTION WIDTH 14.4 % (11.5-14.5); WHITE BLOOD COUNT 8.7 K/uL (4.8-10.8)
[2017-06-03 09:19] LABS: BLOOD UREA NITROGEN 24 mg/dL (7-17); CALCIUM 8.2 mg/dl (8.6-10.4); GFR AFRICAN-AMERICAN > 60; GFR NON-AFRICAN AMERICAN 54
[2017-06-03] MEDS ORDERED: Sodium Chloride 0.45% 1,000 ML IV SCH ×2 (17:15→23:26)
--- NOTE | 2017-06-03 17:48 | RAD ---
HISTORY: fever COMPARISON: Chest x-ray performed 05/30/17 TECHNIQUE: Chest, one view. FINDINGS: LUNGS: Mild interstitial prominence appears chronic. Mild superimposed congestion is not excluded. Please note that chest x-ray has limited sensitivity for the detection of pulmonary masses. PLEURA: Trace left pleural effusion. No definite pneumothorax . CARDIOVASCULAR: Dual lead left-sided pacemaker. Heart size appears top normal. Faint atherosclerotic calcification of the aortic knob. OSSEOUS STRUCTURES: Degenerative changes. Osseous demineralization. VISUALIZED UPPER ABDOMEN: Unremarkable. OTHER FINDINGS: None. IMPRESSION: Mild interstitial prominence appears chronic. Mild superimposed congestion is not excluded. Trace left pleural effusion.
[2017-06-03 22:14] LABS: SQUAMOUS EPITHIAL < 1 /hpf (0-5); URINE BACTERIA MANY (<OCC); URINE BILIRUBIN NEGATIVE (NEGATIVE); URINE BLOOD 2+ (NEGATIVE); URINE CLARITY Clear (Clear); URINE COLOR Yellow (YELLOW); URINE GLUCOSE (UA) NORMAL (Normal); URINE NITRATE NEGATIVE (NEGATIVE); URINE PROTEIN NEGATIVE (NEGATIVE); URINE UROBILINOGEN NORMAL mg/dL (0.2-1.0)
[2017-06-03 22:18] LABS: URINE LEUKOCYTE ESTERASE NEGATIVE Leu/uL (Negative)
--- NOTE | 2017-06-03 23:16 | CP.PCM.PN ---
Subjective - Date & Time of Evaluation Date of Evaluation: 06/03/17 Time of Evaluation: 17:00 - Subjective Subjective: Patient spiked 101 temp last night and again this afternoon. Given tylenol and spetic workup ordered. Blood and urine c/s, CXR requested Patient reportedly feels fine but source of fever? Will also get CBC and CMP in am and start on IV antibiotic empirically. Objective - Vital Signs/Intake and Output Vital Signs (last 24 hours): Temp Pulse Resp BP Pulse Ox 98.3 F 82 20 161/70 H 98 06/03/17 18:00 06/03/17 16:00 06/03/17 16:00 06/03/17 16:00 06/03/17 16:00 Intake and Output: 06/03/17 06/04/17 18:59 06:59 Intake Total 850 Output Total 600 Balance -600 850 - Medications Medications: Current Medications Acetaminophen (Tylenol 325mg Tab) 650 mg PO Q4 PRN PRN Reason: Fever 101 degrees fahrenheit Last Admin: 06/03/17 16:15 Dose: 650 mg Acetaminophen (Tylenol 325mg Tab) 650 mg PO ONCE PRN PRN Reason: Other Dabigatran (Pradaxa) 150 mg PO BID [facility] Last Admin: 06/03/17 20:05 Dose: 150 mg Diphenhydramine HCl (Benadryl) 25 mg PO ONCE PRN PRN Reason: 1 HR PRIOR TO BLOOD TRANSFUSIO Last Admin: 06/01/17 15:58 Dose: 25 mg Docusate Sodium (Colace) 100 mg PO BID [facility] Last Admin: 06/03/17 18:05 Dose: Not Given Enalapril Maleate (Vasotec) 5 mg PO DAILY [facility] Last Admin: 06/03/17 09:38 Dose: 5 mg Glimepiride (Amaryl) 2 mg PO BID [facility] Last Admin: 06/03/17 18:05 Dose: 2 mg Sodium Chloride (Sodium Chloride 0.45%) 1,000 mls @ 80 mls/hr IV .[id number] [facility] Last Admin: 06/03/17 18:06 Dose: 80 mls/hr Ceftriaxone Sodium 1 gm/ (Sodium Chloride) 100 mls @ 100 mls/hr IVPB Q12H [facility] Metformin HCl (Glucophage) 500 mg PO BID [facility] Last Admin: 06/03/17 18:04 Dose: 500 mg Rosuvastatin Calcium (Crestor) 10 mg PO HS [facility] Last Admin: 06/03/17 21:21 Dose: 10 mg - Labs Labs: 06/03/17 08:59 06/03/17 08:59 PT 14.6 SECONDS (9.7-12.2) H 05/31/17 14:34 INR 1.3 05/31/17 14:34 APTT 33 SECONDS (21-34) 05/31/17 14:34 Assessment and Plan - Assessment and Plan (Free Text) Assessment: 1. R Hip Fracture- s/p THR. Getting PT/OT. For rehab 2. Fever- patient spiked 101 temp last night and this pm. Blood and urine c/s, CXR and blood tests ordered. Will start on IV antibiotic empirically. Deferred transfer to rehab. 3. Anemia- from acute blood loss- H/h improved 4. History of atrial fib- SSS- S/P Permanent Pacemaker- condition stable. D/c telemetry 5. Mild dehydration- Started on IVF infusion 6. hyponatremia- resolved. Na back to normal in today's blood test 7. Hypertension- controlled- Continue current meds-chronic condition 8. Diabetes Mellitus- on accucheck. HgbA1c- 6.8- controlled on current med- chronic condition
[2017-06-04 07:32] LABS: BASO % 0.2 % (0.0-2.0); EOS # 0.1 K/uL (0.0-0.7); EOS % 1.5 % (0.0-4.0); HEMOGLOBIN 9.7 g/dL (11.0-16.0); LYMPH # 1.1 K/uL (1.0-4.3); LYMPH % 10.8 % (20.0-40.0); MEAN CELL VOLUME 85.9 fL (81.0-99.0); MEAN CORPUSCULAR HEMOGLOBIN 29.4 pg (27.0-31.0); MEAN CORPUSCULAR HGB CONC 34.2 g/dL (33.0-37.0); MEAN PLATELET VOLUME 7.1 fL (7.2-11.7); MONO # 0.9 K/uL (0.0-0.8); MONO % 8.9 % (0.0-10.0); NEUT # 7.9 K/uL (1.8-7.0); NEUT % 78.6 % (50.0-75.0); RBC 3.29 Mil/uL (3.80-5.20); RED CELL DISTRIBUTION WIDTH 14.6 % (11.5-14.5); WHITE BLOOD COUNT 10.1 K/uL (4.8-10.8)
[2017-06-04 07:54] LABS: ALBUMIN 2.5 g/dL (3.5-5.0)
[2017-06-04 07:57] LABS: ALB/GLOB RATIO 0.8 (1.0-2.1); AST/SGOT 37 U/L (14-36); BLOOD UREA NITROGEN 18 mg/dL (7-17); CALCIUM 8.1 mg/dl (8.6-10.4); GFR AFRICAN-AMERICAN > 60; GFR NON-AFRICAN AMERICAN 54
[2017-06-04 07:58] LABS: ALT/SGPT 25 U/L (9-52)
--- NOTE | 2017-06-04 12:36 | CP.PCM.PN ---
Subjective - Date & Time of Evaluation Date of Evaluation: 06/04/17 Time of Evaluation: 12:35 - Subjective Subjective: Pt had a temp spike yesterday afternoon. Denies sig right hip pain. T now 99 R hip: small amount of serous drainage no cellulitis thigh soft, NT NVI distally WBC 10.1 POD #4 Pt started on rocephin daily dressing changes cont PT, DVT prophylaxis Objective - Vital Signs/Intake and Output Vital Signs (last 24 hours): Temp Pulse Resp BP Pulse Ox 99 F 72 20 136/72 99 06/04/17 07:00 06/04/17 07:00 06/04/17 07:00 06/04/17 09:02 06/04/17 07:00 Intake and Output: 06/04/17 06/04/17 06:59 18:59 Intake Total 1350 Balance 1350 - Medications Medications: Current Medications Acetaminophen (Tylenol 325mg Tab) 650 mg PO Q4 PRN PRN Reason: Fever 101 degrees fahrenheit Last Admin: 06/03/17 16:15 Dose: 650 mg Acetaminophen (Tylenol 325mg Tab) 650 mg PO ONCE PRN PRN Reason: Other Dabigatran (Pradaxa) 150 mg PO BID [facility] Last Admin: 06/04/17 09:00 Dose: 150 mg Diphenhydramine HCl (Benadryl) 25 mg PO ONCE PRN PRN Reason: 1 HR PRIOR TO BLOOD TRANSFUSIO Last Admin: 06/01/17 15:58 Dose: 25 mg Docusate Sodium (Colace) 100 mg PO BID [facility] Last Admin: 06/04/17 09:00 Dose: 100 mg Enalapril Maleate (Vasotec) 5 mg PO DAILY [facility] Last Admin: 06/04/17 09:02 Dose: 5 mg Glimepiride (Amaryl) 2 mg PO BID [facility] Last Admin: 06/04/17 09:00 Dose: 2 mg Ceftriaxone Sodium 1 gm/ (Sodium Chloride) 100 mls @ 100 mls/hr IVPB Q12H [facility] Last Admin: 06/04/17 00:51 Dose: 100 mls/hr Sodium Chloride (Sodium Chloride 0.45%) 1,000 mls @ 50 mls/hr IV .Q20H [facility] Last Admin: 06/04/17 00:51 Dose: 50 mls/hr Metformin HCl (Glucophage) 500 mg PO BID [facility] Last Admin: 06/04/17 09:00 Dose: 500 mg Rosuvastatin Calcium (Crestor) 10 mg PO [facility] Last Admin: 06/03/17 21:21 Dose: 10 mg - Labs Labs: 06/04/17 07:08 06/04/17 07:08 PT 14.6 SECONDS (9.7-12.2) H 05/31/17 14:34 INR 1.3 05/31/17 14:34 APTT 33 SECONDS (21-34) 05/31/17 14:34
[2017-06-04 16:16] VITALS: BP 130/65; PULSE 77; RESP 18; TEMP 98.4; O2SAT 96
--- NOTE | 2017-06-04 16:51 | CP.PCM.DIS ---
Provider - Provider Date of Admission: 05/30/17 10:52 Attending physician: Elaina Raymundo MD Primary care physician: Breanne Consults: Juan C Adame Time Spent in preparation of Discharge (in minutes): 45 Diagnosis - Discharge Diagnosis (1) Hip fracture Status: Acute (2) Acute blood loss anemia Status: Resolved Priority: Low Comment: Needs monitoring as patient is on anticoagulant. (3) Urinary tract infection Status: Acute Priority: Medium Comment: Continue Antibiotic for 5 more days from 06/05. (4) Dehydration Status: Resolved Priority: Low (5) Hyponatremia Status: Resolved Priority: Low (6) Status cardiac pacemaker Status: Chronic Priority: Low (7) Diabetes mellitus Status: Chronic Priority: Medium (8) Hypertension Status: Chronic Priority: Medium Hospital Course - Lab Results Lab Results: Micro Results 06/03/17 22:06 Urine,Clean Catch Urine Culture - Preliminary Gram Negative Finn Most Recent Lab Values WBC 10.1 K/uL (4.8-10.8) 06/04/17 07:08 RBC 3.29 Mil/uL (3.80-5.20) L 06/04/17 07:08 Hgb 9.7 g/dL (11.0-16.0) L 06/04/17 07:08 Hct 28.3 % (34.0-47.0) L 06/04/17 07:08 MCV 85.9 fL (81.0-99.0) 06/04/17 07:08 MCH 29.4 pg (27.0-31.0) 06/04/17 07:08 MCHC 34.2 g/dL (33.0-37.0) 06/04/17 07:08 RDW 14.6 % (11.5-14.5) H 06/04/17 07:08 Plt Count 218 K/uL (130-400) 06/04/17 07:08 MPV 7.1 fL (7.2-11.7) L 06/04/17 07:08 Neut % (Auto) 78.6 % (50.0-75.0) H 06/04/17 07:08 Lymph % (Auto) 10.8 % (20.0-40.0) L 06/04/17 07:08 [place] % (Auto) 8.9 % (0.0-10.0) 06/04/17 07:08 Eos % (Auto) 1.5 % (0.0-4.0) 06/04/17 07:08 Baso % (Auto) 0.2 % (0.0-2.0) 06/04/17 07:08 Neut # 7.9 K/uL (1.8-7.0) H 06/04/17 07:08 Lymph # 1.1 K/uL (1.0-4.3) 06/04/17 07:08 Carver # 0.9 K/uL (0.0-0.8) H 06/04/17 07:08 Eos # 0.1 K/uL (0.0-0.7) 06/04/17 07:08 Baso # 0.0 K/uL (0.0-0.2) 06/04/17 07:08 Neutrophils % (Manual) 86 % (50-75) H 05/30/17 08:44 Band Neutrophils % 2 % (0-2) 05/30/17 08:44 Lymphocytes % (Manual) 7 % (20-40) L 05/30/17 08:44 Monocytes % (Manual) 4 % (0-10) 05/30/17 08:44 Eosinophils % (Manual) 1 % (0-4) 05/30/17 08:44 Platelet Estimate Normal (NORMAL) 05/30/17 08:44 Anisocytosis (manual) Slight 05/30/17 08:44 PT 14.6 SECONDS (9.7-12.2) H 05/31/17 14:34 INR 1.3 05/31/17 14:34 APTT 33 SECONDS (21-34) 05/31/17 14:34 Sodium 133 mmol/L (132-148) 06/04/17 07:08 Potassium 4.0 mmol/L (3.6-5.2) 06/04/17 07:08 Chloride 101 mmol/L (98-107) 06/04/17 07:08 Carbon Dioxide 26 mmol/L (22-30) 06/04/17 07:08 Anion Gap 11 (10-20) 06/04/17 07:08 BUN 18 mg/dL (7-17) H 06/04/17 07:08 Creatinine 1.0 MG/DL (0.7-1.2) 06/04/17 07:08 Est GFR ( Amer) > 60 06/04/17 07:08 Est GFR (Non-Af Amer) 54 06/04/17 07:08 POC Glucose (mg/dL) 147 mg/dL (65-110) H 06/04/17 11:14 Random Glucose 140 mg/dL (65-105) H 06/04/17 07:08 Hemoglobin A1c 6.8 % (4.2-6.5) H 06/01/17 07:58 Calcium 8.1 mg/dl (8.6-10.4) L 06/04/17 07:08 Total Bilirubin 0.6 mg/dL (0.2-1.3) 06/04/17 07:08 AST 37 U/L (14-36) H 06/04/17 07:08 ALT 25 U/L (9-52) 06/04/17 07:08 Alkaline Phosphatase 73 U/L (38-126) 06/04/17 07:08 Total Protein 5.7 g/dL (6.3-8.3) L 06/04/17 07:08 Albumin 2.5 g/dL (3.5-5.0) L 06/04/17 07:08 Globulin 3.1 gm/dL (2.2-3.9) 06/04/17 07:08 Albumin/Globulin Ratio 0.8 (1.0-2.1) L 06/04/17 07:08 Urine Color Yellow (YELLOW) 06/03/17 21:49 Urine Clarity Clear (Clear) 06/03/17 21:49 Urine pH 6.0 (5.0-8.0) 06/03/17 21:49 Ur Specific [place] 1.006 (1.003-1.030) 06/03/17 21:49 Urine Protein Negative mg/dL (NEGATIVE) 06/03/17 21:49 Urine Glucose (UA) Normal mg/dL (Normal) 06/03/17 21:49 Urine Ketones Negative mg/dL (NEGATIVE) 06/03/17 21:49 Urine Blood 2+ (NEGATIVE) H 06/03/17 21:49 Urine Nitrate Negative (NEGATIVE) 06/03/17 21:49 Urine Bilirubin Negative (NEGATIVE) 06/03/17 21:49 Urine Urobilinogen Normal mg/dL (0.2-1.0) 06/03/17 21:49 Ur Leukocyte Esterase Negative Brian/uL (Negative) 06/03/17 21:49 Urine WBC (Auto) 2 /hpf (0-5) 06/03/17 21:49 Urine RBC (Auto) 3 /hpf (0-3) 06/03/17 21:49 Ur Squamous Epith Cells < 1 /hpf (0-5) 06/03/17 21:49 Ur Transition Epith Cell < 1 /hpf (0-3) 06/03/17 21:49 Urine Bacteria Many (<OCC) H 06/03/17 21:49 Blood Type O POSITIVE 05/30/17 09:33 Blood Type Confirm O POSITIVE 05/30/17 09:33 Antibody Screen Negative 05/30/17 09:33 - Hospital Course Hospital Course: This is a 76 y/o female diabetic and hypertensive who was admitted to the hospital because of R hip pain following a fall at home. She was found to have fracture of the R hip. Orthpedic consultaion was obtained and she had THR the next day. She tolerated the procedure well. She was started promptly on PT/OT and was ready for discharge when she was noted to have spiked a 101 temperature. Septic work up done showed urinary tract infection. She was started on IV antibiotic empirically and the fever went down. She will be transferrred to [facility] facility for further rehabilitation. Discharge Exam - Head Exam Head Exam: NORMAL INSPECTION - Eye Exam Eye Exam: Normal appearance - ENT Exam ENT Exam: Normal Exam - Respiratory Exam Respiratory Exam: Clear to PA & Lateral, NORMAL BREATHING PATTERN - Cardiovascular Exam Cardiovascular Exam: REGULAR RHYTHM, +S1, +S2 - GI/Abdominal Exam GI & Abdominal Exam: Normal Bowel Sounds, Soft - Extremities Exam Extremities exam: normal capillary refill, pedal pulses present - Neurological Exam Neurological exam: Alert, Oriented x3 - Skin Skin Exam: Dry, Intact, Normal Color, Warm Discharge Plan - Follow Up Plan Condition: STABLE Disposition: REHAB FACILITY/REHAB UNIT Additional Instructions: Continue antibiotic for 5 more days starting tomorrow, 06/05. office follow up once discharged from [facility]. Referrals: Vic Adame MD [Staff Provider] - 06/14/17 (f/u Dr. Adame 1-2 weeks call for appointment hip abduction pillow in bed dressing change right hip daily posterior hip precautions WBAT RLE)
== END 2017-06-04 21:45 | DRG 470 ==
LOC: C.ER 08:08 → C.9E 10:52 → C.6T 12:00
PROVIDERS: ADMIT Internal Medicine Cardiovascular Disease; ATTEND Internal Medicine Cardiovascular Disease
PROC: 0SR90JA Replacement of Right Hip Joint with Synthetic Substitute, Uncemented, Open Approach (ICD-10-PCS; principal; 2017-05-31 07:45)
PROC: 30233N1 Transfusion of Nonautologous Red Blood Cells into Peripheral Vein, Percutaneous Approach (ICD-10-PCS; 2017-06-02)
DX: S72.091A Other fracture of head and neck of right femur, initial encounter for closed fracture (principal); E87.1 Hypo-osmolality and hyponatremia; N39.0 Urinary tract infection, site not specified; D62 Acute posthemorrhagic anemia; I49.5 Sick sinus syndrome; I48.91 Unspecified atrial fibrillation; E11.9 Type 2 diabetes mellitus without complications; E86.0 Dehydration; I10 Essential (primary) hypertension; W01.0XXA Fall on same level from slipping, tripping and stumbling without subsequent striking against object, initial encounter; M19.90 Unspecified osteoarthritis, unspecified site; Z95.0 Presence of cardiac pacemaker